=== PATIENT | female | born 1990 | race Two or more races ===

== ENCOUNTER 2018-05-17 14:32 | Inpatient (IN) | payer OTHER ==
[~2018-05-17] VITALS: Ht 160 cm; Wt 58.0 kg
[2018-05-17] MEDS ORDERED: PRAZ1CAP PO (14:38)
[2018-05-17] MEDS ORDERED: HYDR100C PO (14:38)
[2018-05-17] MEDS ORDERED: BUPR300T34 PO (14:38)
[2018-05-17 15:19] LABS: HEMOGLOBIN 14.6 g/dl (12.0-15.5); MEAN CORPUSCULAR HEMOGLOBIN 30.5 pg (27.0-33.0); MEAN CORPUSCULAR VOLUME 89.8 fl (80.0-96.0); PLATELET COUNT, AUTOMATED 264 10^3/uL (150-450); RED BLOOD COUNT 4.79 10^6/uL (4.00-5.40); WHITE BLOOD COUNT 7.2 10^3/uL (4.0-10.0)
[2018-05-17 15:29] LABS: AMPHETAMINES LEVEL URINE NEGATIVE (NEGATIVE); BARBITURATES URINE NEGATIVE (NEGATIVE); BENZODIAZEPINES URINE NEGATIVE (NEGATIVE); CANNABINOIDS URINE NEGATIVE (NEGATIVE); COCAINE METABOLITE URINE NEGATIVE (NEGATIVE); METHADONE URINE NEGATIVE (NEGATIVE); OPIATES URINE NEGATIVE (NEGATIVE); PHENCYCLIDINE URINE NEGATIVE (NEGATIVE)
[2018-05-17 15:30] LABS: HCG, SERUM QUALITATIVE NEGATIVE (NEGATIVE)
[2018-05-17 15:38] LABS: ACETAMINOPHEN LEVEL < 2.0 UG/ML (10.0-30.0); ALBUMIN 3.8 GM/DL (3.2-5.2); ALT/SGPT 11 U/L (12-78); BILIRUBIN,DIRECT 0.2 MG/DL (0.0-0.2); BILIRUBIN,TOTAL 0.7 MG/DL (0.2-1.0); BLOOD UREA NITROGEN 5 MG/DL (7-18); CALCIUM LEVEL 8.4 MG/DL (8.5-10.1); CARBON DIOXIDE LEVEL 26 MEQ/L (21-32); CHLORIDE LEVEL 105 MEQ/L (98-107); CREATININE FOR GFR 0.67 MG/DL (0.55-1.30); ETHYL ALCOHOL (ETHANOL) 0.008 % (0.000-0.010); GLOMERULAR FILTRATION RATE > 60.0 (>60); GLUCOSE, FASTING 99 MG/DL (70-100); POTASSIUM SERUM 3.8 MEQ/L (3.5-5.1); SALICYLATE LEVEL < 1.7 MG/DL (5.0-30.0); SODIUM LEVEL 142 MEQ/L (136-145); THYROID STIMULATING HORMONE 0.762 uIU/ML (0.358-3.740); TOTAL PROTEIN 7.8 GM/DL (6.4-8.2)
[2018-05-17] MEDS ORDERED: OLANZapine ORAL DISINTEGRATING TAB 5MG PO PRN (16:30)
[2018-05-17] MEDS ORDERED: MAALOX 30 ML SUSP *UDC PO PRN (16:30)
[2018-05-17] MEDS ORDERED: ACETAMINOPHEN TAB 650MG DOSE (2X325MG) PO PRN (16:30)
[2018-05-17] MEDS ORDERED: MOM 30ML SUSPENSION UDC PO PRN (16:30)
[2018-05-17] MEDS ORDERED: VIST50CA PO (16:48)
[2018-05-17] MEDS ORDERED: ZZZQ50LI PO (16:48)
[2018-05-17] MEDS ORDERED: [UNRECOGNIZED DRUG - CODE] TOP (16:48)
[2018-05-17] MEDS ORDERED: IBUP200T45 PO (16:48)
[2018-05-17] MEDS ORDERED: NAPR-885 PO (16:48)
[2018-05-17] MEDS ORDERED: [UNRECOGNIZED DRUG - CODE] TOP (16:48)
[2018-05-17] MEDS ORDERED: BUPR1TAB53 PO (16:48)
[2018-05-17] MEDS ORDERED: LIDO5DIS41 TD (16:48)
[2018-05-17] MEDS ORDERED: VITA100066 PO (16:48)
[2018-05-17 18:15] VITALS: BP 124/56
[2018-05-18 06:10] VITALS: BP 110/72
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
[2018-05-18] MEDS ORDERED: hydrOXYzine 50 MG TAB PO PRN (13:00)
--- NOTE | 2018-05-18 13:02 | HPE ---
DATE OF ADMISSION: 05/17/2018 HISTORY OF PRESENT ILLNESS: Please refer to psychiatric history and evaluation for further details on this admission. This examination and history is intended for medical issues, which may need treatment, followup or consultation on this 28-year-old female. SOCIAL HISTORY: She is . Her is a soldier, and she is currently stationed at [employer]. She is an active duty soldier. ETOH: None. Smokes: None. Recreational drug use: None. PAST MEDICAL HISTORY: Chronic back pain, depression, anxiety. PAST SURGICAL HISTORY: Negative. HOME MEDICATIONS: - clonazepam 0.5 mg by mouth three times a day as needed for agitation - lithium 600 mg by mouth twice a day FAMILY HISTORY: Father with hypertension. LABORATORY STUDIES: CBC normal. Electrolytes normal. BUN 5, creatinine 0.67, calcium 8.4. ETOH: 0.008. REVIEW OF SYSTEMS: Ten systems review was unremarkable. PHYSICAL EXAMINATION: GENERAL: 28-year-old cooperative female in no acute distress. HEENT: Pupils are equal and reactive to light. Extraocular muscles intact. Sclerae clear. Conjunctivae normal. No facial asymmetry. Pharynx, gums and tongue pink and moist. Tongue is midline. NECK: Supple without lymphadenopathy, thyromegaly or goiter. Carotids 2+ without bruit. CHEST: Clear to auscultation without wheeze or retraction. HEART: Regular. ABDOMEN: Benign. Bowel sounds positive. GENITOURINARY/RECTAL: Not done. EXTREMITIES: Equal strength, full range of motion. No clubbing, cyanosis, and edema. Peripheral pulses equal and palpable bilaterally. SKIN: Warm and dry. IMPRESSION/PLAN: 1. Psychiatric plan per psychiatry. 2. No acute medical issues.
[2018-05-18] MEDS ORDERED: BUPR150T3 PO (13:03)
[2018-05-18] MEDS: buPROPion **XL** TABLET 150MG (WELLBUTRIN XL) PO SCH (14:47)
[2018-05-18 18:00] VITALS: BP 127/66
[2018-05-18] MEDS: PRAZOSIN 1 MG CAP PO SCH (21:45)
[2018-05-18] MEDS: traZODone 50 MG TAB PO PRN (22:59)
[2018-05-19 06:44] VITALS: BP 99/53
[2018-05-19] MEDS: buPROPion **XL** TABLET 150MG (WELLBUTRIN XL) PO SCH (08:33)
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
[2018-05-19 18:00] VITALS: BP 123/63
[2018-05-19] MEDS: traZODone 50 MG TAB PO PRN (21:05)
[2018-05-19 21:07] VITALS: BP 127/68
[2018-05-19] MEDS: PRAZOSIN 1 MG CAP PO SCH (21:07)
[2018-05-20 06:34] VITALS: BP_SYST 88; BP_SYST 98; BP_DIAS 47
[2018-05-20] MEDS: buPROPion **XL** TABLET 150MG (WELLBUTRIN XL) PO SCH (09:15)
[2018-05-20] MEDS ORDERED: HYDRO50TAB PO (10:52)
[2018-05-20] MEDS ORDERED: MINI1CAP PO (10:52)
[2018-05-20] MEDS ORDERED: TRAZO50TA PO (10:52)
[2018-05-20] MEDS ORDERED: BUPR150T3 PO (10:58)
[2018-05-20] MEDS ORDERED: D 1010004 PO (10:58)
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
== END 2018-05-20 11:28 | disposition home or self-care (01) | DRG 881 ==
LOC: M ED 14:32 → M ED INP 16:19 → M PSY 17:05
PROVIDERS: ADMIT Psychiatry & Neurology Psychiatry; ATTEND Psychiatry & Neurology Psychiatry
DX: F32.9 Major depressive disorder, single episode, unspecified (principal); F43.10 Post-traumatic stress disorder, unspecified; Z79.899 Other long term (current) drug therapy